=== PATIENT | female | born 1965 | race Caucasian/White ===

== ENCOUNTER → 2021-07-08 | Outpatient (CLI) | payer SELFPAY ==
--- NOTE | 2021-07-08 09:57 | Diagnostic Imaging Report ---
Indication: Neck pain. FINDINGS: 5 views. Good alignment of vertebral bodies. Body height is well-maintained. Disc spaces are well-maintained. There is bony bridging osteophyte anteriorly at C5-C6. Facets show good alignment without hypertrophic change. No evidence of foraminal encroachment. The atlantoaxial joint appears normal. The prevertebral soft tissues are normal. IMPRESSION: Degenerative cervical disc disease C5-C6. Dictated by: Dictated on workstation # [id number]
--- NOTE | 2021-07-08 10:06 | Diagnostic Imaging Report ---
INDICATION: Back pain. EXAMINATION: Lumbar spine, 3 views. FINDINGS: The lumbosacral spine shows good alignment. Body height is well-maintained. Mild narrowing of the disc space at L5-S1. Facets show good alignment. There are hypertrophic changes at L4-L5 and L5-S1. The aorta is atherosclerotic without evidence of aneurysm. IMPRESSION: Degenerative facet and disc disease is noted in the lower lumbosacral spine. Dictated by: Dictated on workstation # [id number]
== END ==
LOC: RAD FS 08:24
PROVIDERS: ATTEND Allergy & Immunology
DX: M47.816 Spondylosis without myelopathy or radiculopathy, lumbar region (principal); M51.36 Other intervertebral disc degeneration, lumbar region; M50.322 Other cervical disc degeneration at C5-C6 level
CPT/HCPCS: 72040; 72100